=== PATIENT | male | born 1980 | race American Indian/Alaskan Native ===

== ENCOUNTER 2018-01-06 20:59 | Emergency (ER) | payer OTHER ==
--- NOTE | 2018-01-06 22:52 | Cat Scan Report ---
FINAL REPORT PROCEDURE: CT head without contrast. TECHNIQUE: Computerized tomography of the head was performed without contrast material. HISTORY: Headache, elevated blood pressure, emesis. COMPARISON: No prior studies are available for comparison. FINDINGS: The ventricles are normal in size. The liu matter and white matter appear normal. There are no mass lesions. There is no intracranial hemorrhage. The calvarium appears intact. The mastoid air cells and paranasal sinuses are clear as far as visualized. IMPRESSION: Normal study.
[2018-01-06 22:55] LABS: Basophils % (Auto) 0.3 % (0.0-1.8); Eosinophils % (Auto) 0.3 % (0.0-4.3); Hematocrit 45.9 % (35.5-45.6); Hemoglobin 15.1 gm/dl (11.8-15.2); Lymphocytes % (Auto) 9.8 % (13.4-35.0); Mean Corpuscular HGB Conc 33 % (32-34); Mean Corpuscular Hemoglobin 30 pg (28-32); Mean Corpuscular Volume 91 fl (84-94); Monocytes # (Auto) 0.7 K/mm3 (0.0-0.8); Monocytes % (Auto) 6.7 % (0.0-7.3); Platelet Count 235 K/mm3 (140-440); Red Blood Count 5.03 M/mm3 (3.65-5.03); Red Cell Distribution Width 14.4 % (13.2-15.2)
[2018-01-06 23:07] LABS: BUN/Creatinine Ratio 13; Blood Urea Nitrogen 12 mg/dL (9-20); Hemolysis Index 7
[2018-01-07] MEDS ORDERED: CATAPRES PO ONE ×2 (07:48→10:36)
--- NOTE | 2018-01-07 10:41 | Emergency Department Report ---
ED Headache HPI - General Chief Complaint: Headache Stated Complaint: DIZZY,VOMITING,CHILLS Time Seen by Provider: 01/07/18 10:31 Source: patient - History of Present Illness Initial Comments: Patient is a 37-year-old male history of hypertension, noncompliant with his medication, he stated that the last time he took his blood pressure medicine was 6 months ago. Patient presented with headache for the last week and had blood pressure. Patient denied any fever, neck pain or neck stiffness. Patient denied any weakness numbness tingling sensation. No bowel or bladder incontinence. Patient denied any chest pain or shortness of breath. Timing/Duration: 1 week Quality: moderate Head Injury Location: global Recent Head Trauma: occasional headaches Associated Symptoms: denies: denies symptoms, confusion, fatigue, facial pain, fever/chills, flushing, loss of consciousness, nausea/vomiting, nasal congestion , nasal drainage, numbness in legs/feet, rash, seizures, sinus infection, stiff neck, vision changes, weakness, other Allergies/Adverse Reactions: Allergies No Known Allergies Allergy (Unverified 04/22/14 15:50) Home Medications: Ambulatory Orders Lisinopril [Zestril TAB] 20 mg PO QDAY #30 tablet 04/22/14 traMADol [Ultram 50 MG tab] 50 mg PO Q6HR PRN #15 tablet 04/22/14 ED Review of Systems ROS: Stated complaint: DIZZY,VOMITING,CHILLS Other details as noted in HPI Comment: All other systems reviewed and negative Constitutional: denies: chills, fever Respiratory: denies: cough, orthopnea, shortness of breath, SOB with exertion, SOB at rest Cardiovascular: denies: chest pain, palpitations, dyspnea on exertion Gastrointestinal: denies: abdominal pain, nausea, vomiting Neurological: headache. denies: weakness, numbness, paresthesias, confusion, abnormal gait ED Past Medical Hx - Past Medical History Previous Medical History?: Yes Hx Hypertension: Yes (noncompliant w/meds x1 yr) - Surgical History Past Surgical History?: Yes Additional Surgical History: right arm surgery - Social History Smoking Status: Never Smoker Substance Use Type: Alcohol, Marijuana - Medications Home Medications: Home Medications Medication Instructions Recorded Confirmed Last Taken Type Lisinopril [Zestril TAB] 20 mg PO QDAY #30 tablet 06/19/14 Unknown Rx traMADol [Ultram 50 MG tab] 50 mg PO Q6HR PRN #15 tablet 04/22/14 Unknown Rx ED Physical Exam - General Limitations: No Limitations General appearance: alert, in no apparent distress - Head Head exam: Present: atraumatic, normocephalic, normal inspection - Eye Eye exam: Present: normal appearance, PERRL - ENT ENT exam: Present: normal exam, normal orophraynx, mucous membranes moist - Neck Neck exam: Present: normal inspection, full ROM. Absent: tenderness, meningismus, lymphadenopathy, thyromegaly - Respiratory Respiratory exam: Present: normal lung sounds bilaterally. Absent: respiratory distress, wheezes, rales, rhonchi, stridor, chest wall tenderness, accessory muscle use, decreased breath sounds, prolonged expiratory - Cardiovascular Cardiovascular Exam: Present: regular rate, normal rhythm, normal heart sounds - GI/Abdominal GI/Abdominal exam: Present: soft, normal bowel sounds. Absent: distended, tenderness, guarding, rebound, rigid, organomegaly, mass, bruit, pulsatile mass , hernia - Extremities Exam Extremities exam: Present: normal inspection, full ROM, normal capillary refill - Back Exam Back exam: Present: normal inspection, full ROM. Absent: tenderness, CVA tenderness (R), CVA tenderness (L) - Neurological Exam Neurological exam: Present: alert, oriented X3, CN II-XII intact, normal gait. Absent: abnormal gait - Skin Skin exam: Present: warm, intact, normal color. Absent: cyanosis, diaphoretic, erythema ED Course Vital Signs 01/06/18 01/07/18 01/07/18 21:58 02:42 07:36 Temperature 98 F 98.1 F 97.5 F L Pulse Rate 81 73 78 Respiratory 18 18 18 Rate Blood Pressure 174/109 178/122 181/128 Blood Pressure [Left] O2 Sat by Pulse 97 97 98 Oximetry 01/07/18 01/07/18 01/07/18 09:09 09:51 10:42 Temperature Pulse Rate 74 87 Respiratory 16 Rate Blood Pressure 172/113 167/112 Blood Pressure 154/116 [Left] O2 Sat by Pulse 95 Oximetry 01/07/18 11:15 Temperature Pulse Rate 74 Respiratory 16 Rate Blood Pressure Blood Pressure 151/101 [Left] O2 Sat by Pulse 100 Oximetry ED Medical Decision Making - Lab Data Result diagrams: 01/06/18 22:12 01/06/18 22:12 Critical care attestation.: If time is entered above; I have spent that time in minutes in the direct care of this critically ill patient, excluding procedure time. ED Disposition Clinical Impression: Headache, Malignant hypertension Disposition: DC-01 TO HOME OR SELFCARE Is pt being admited?: No Condition: Stable Instructions: Hypertension (ED) Referrals: PRIMARY CARE, [Primary Care Provider] - 3-5 Days
[2018-01-07 11:16] VITALS: BP 151/101
== END 2018-01-07 12:54 | disposition home or self-care (01) ==
LOC: ED 20:59
DX: R51 Headache (principal); I10 Essential (primary) hypertension; F12.10 Cannabis abuse, uncomplicated
CPT/HCPCS: 36415; 70450; 80048; 85025

== ENCOUNTER 2020-01-19 14:22 | Emergency (ER) | payer SELFPAY ==
[2020-01-19] MEDS ORDERED: IBUPROFEN 800 MG TAB PO ONE (15:08)
--- NOTE | 2020-01-19 15:57 | Emergency Department Report ---
ED Headache HPI - General Chief Complaint: High BP Stated Complaint: HBP Time Seen by Provider: 01/19/20 15:07 Source: patient Exam Limitations: no limitations - History of Present Illness Initial Comments: 39-year-old male with history of uncontrolled hypertension presents to ED with headache since yesterday. Patient states he went to the [facility] on yesterday because of headache and dizziness. When he took his blood pressure his systolic BP was in the 200s, so they walked him over to the [facility]. Patient states there he was given a prescription for amlodipine, which he got filled and took today. Patient states his headache remains. Denies any nausea, vomiting, fever. Patient states they did not do any blood work or head CT at [facility]. Timing/Duration: other (2 days) Quality: moderate Head Injury Location: frontal Associated Symptoms: denies: fever/chills, nausea/vomiting Allergies/Adverse Reactions: Allergies No Known Allergies Allergy (Unverified 04/22/14 15:50) Home Medications: Ambulatory Orders lisinopriL [Zestril TAB] 20 mg PO QDAY #30 tablet 04/22/14 traMADoL [Ultram 50 MG tab] 50 mg PO Q6HR PRN #15 tablet 04/22/14 amLODIPine [Norvasc] 5 mg PO DAILY #30 tab 01/07/18 hydroCHLOROthiazide [HCTZ] 25 mg PO QDAY #30 tablet 01/07/18 hydroCHLOROthiazide [Hctz] 12.5 mg PO QDAY #30 capsule 01/19/20 ED Review of Systems ROS: Stated complaint: HBP Other details as noted in HPI Comment: All other systems reviewed and negative Constitutional: denies: chills, fever Respiratory: denies: shortness of breath Cardiovascular: denies: chest pain Gastrointestinal: denies: nausea, vomiting Neurological: headache. denies: weakness, numbness ED Past Medical Hx - Past Medical History Previous Medical History?: Yes Hx Hypertension: Yes (noncompliant w/meds x1 yr) - Surgical History Additional Surgical History: right arm surgery - Social History Smoking Status: Current Some Day Smoker Substance Use Type: None - Medications Home Medications: Home Medications Medication Instructions Recorded Confirmed Last Taken Type lisinopriL [Zestril TAB] 20 mg PO QDAY #30 tablet 04/22/14 Unknown Rx traMADoL [Ultram 50 MG tab] 50 mg PO Q6HR PRN #15 tablet 04/22/14 Unknown Rx amLODIPine [Norvasc] 5 mg PO DAILY #30 tab 01/07/18 Unknown Rx hydroCHLOROthiazide [HCTZ] 25 mg PO QDAY #30 tablet 01/07/18 Unknown Rx hydroCHLOROthiazide [Hctz] 12.5 mg PO QDAY #30 capsule 01/19/20 Unknown Rx ED Physical Exam - General Limitations: No Limitations General appearance: alert, in no apparent distress - Head Head exam: Present: atraumatic, normocephalic - Eye Eye exam: Present: normal appearance, PERRL, EOMI - ENT ENT exam: Present: mucous membranes moist - Neck Neck exam: Present: normal inspection - Respiratory Respiratory exam: Present: normal lung sounds bilaterally. Absent: respiratory distress - Cardiovascular Cardiovascular Exam: Present: normal rhythm, tachycardia - GI/Abdominal GI/Abdominal exam: Present: soft. Absent: distended, tenderness - Neurological Exam Neurological exam: Present: alert, oriented X3 - Psychiatric Psychiatric exam: Present: normal affect, normal mood - Skin Skin exam: Present: warm, dry, intact, normal color ED Course Vital Signs 01/19/20 01/19/20 01/19/20 14:24 15:04 15:22 Temperature 98.3 F Pulse Rate 114 H 107 H 109 H Respiratory 18 13 18 Rate Blood Pressure 185/132 182/124 Blood Pressure [Left] O2 Sat by Pulse 99 92 97 Oximetry 01/19/20 01/19/20 01/19/20 15:24 15:30 15:45 Temperature Pulse Rate 113 H 94 H 93 H Respiratory 18 15 12 Rate Blood Pressure 176/133 166/115 Blood Pressure 182/124 [Left] O2 Sat by Pulse 97 97 97 Oximetry 01/19/20 01/19/20 01/19/20 16:00 16:16 16:30 Temperature Pulse Rate 88 90 93 H Respiratory 12 12 21 Rate Blood Pressure 166/115 174/118 174/118 Blood Pressure [Left] O2 Sat by Pulse 96 98 96 Oximetry 01/19/20 01/19/20 01/19/20 16:45 17:18 17:59 Temperature Pulse Rate 93 H 86 85 Respiratory 27 H 17 Rate Blood Pressure 177/129 184/126 Blood Pressure 174/127 [Left] O2 Sat by Pulse 98 98 Oximetry ED Medical Decision Making - Lab Data Result diagrams: 01/19/20 16:02 - Radiology Data Radiology results: report reviewed, image reviewed - Medical Decision Making - BP improved somewhat - MARQUEZ improved - CT Head negative - HCTZ added to med regimen - outpt f/u advised - spoke w/ pt about low sodium diet - Differential Diagnosis uncontrolled HTN, intracranial abnormality, renal failure Critical care attestation.: If time is entered above; I have spent that time in minutes in the direct care of this critically ill patient, excluding procedure time. ED Disposition Clinical Impression: Uncontrolled hypertension Disposition: - TO HOME OR SELFCARE Is pt being admited?: No Condition: Stable Instructions: Hypertension (ED) Prescriptions: hydroCHLOROthiazide [Hctz] 12.5 mg PO QDAY #30 capsule Referrals: PRIMARY MD RAZA [Primary Care Provider] - 3-5 Days [facility] [Provider Group] - 3-5 Days ELISABET PATRICIA MD [Staff Physician] - 3-5 Days GRETTA MENENDEZ MD [Staff Physician] - 3-5 Days Time of Disposition: 17:31
[2020-01-19 16:36] LABS: BUN/Creatinine Ratio 12; Blood Urea Nitrogen 14 mg/dL (9-20); Calcium 9.6 mg/dL (8.4-10.2); Hemolysis Index 9
[2020-01-19] MEDS ORDERED: cloNIDine 0.1 MG TAB PO ONE (17:04)
[2020-01-19 18:01] VITALS: BP 174/127
--- NOTE | 2020-01-20 10:57 | Cat Scan Report ---
CT BRAIN: 01/19/2020 INDICATION / CLINICAL INFORMATION: MARQUEZ. COMPARISON: 01/06/2018 FINDINGS: BRAIN/INTRACRANIAL STRUCTURES: Unenhanced CT images of the brain demonstrate no evidence of acute int racranial abnormality. Ventricles and sulci are normal in size and shape. There is no evidence of hemorrhage or mass. There are no abnormal extra-axial fluid collections. There is been no change when compared to 01/06/2018. EXTRACRANIAL STRUCTURES: Unremarkable. IMPRESSION: No acute abnormality. All CT scans at this location are performed using dose reduction to ALARA by means of automated expos ure control. Signer Name: Donaldo Spencer MD Signed: 01/19/2020 3:40 PM Workstation Name: [id number]
== END 2020-01-19 17:59 | disposition home or self-care (01) ==
LOC: ED 14:22
DX: I10 Essential (primary) hypertension (principal); F17.200 Nicotine dependence, unspecified, uncomplicated; Z98.890 Other specified postprocedural states; Z79.899 Other long term (current) drug therapy
CPT/HCPCS: 36415; 70450; 80048; 93005; 93010